=== PATIENT | male | born 1995 | race American Indian/Alaskan Native ===

== ENCOUNTER 2017-07-05 18:34 | Emergency (ER) | payer SELFPAY ==
[2017-07-05] MEDS ORDERED: ASPIRIN PO ONE (18:52)
[2017-07-05 19:20] LABS: Basophils % (Auto) 0.6 % (0.0-1.8); Eosinophils # (Auto) 0.1 K/mm3 (0.0-0.4); Hemoglobin 14.8 gm/dl (11.8-15.2); Lymphocytes # (Auto) 1.8 K/mm3 (1.2-5.4); Lymphocytes % (Auto) 30.5 % (13.4-35.0); Mean Corpuscular HGB Conc 34 % (32-34); Mean Corpuscular Volume 76 fl (84-94); Monocytes # (Auto) 0.8 K/mm3 (0.0-0.8); Monocytes % (Auto) 13.1 % (0.0-7.3); Platelet Count 203 K/mm3 (140-440); Red Blood Count 5.79 M/mm3 (3.65-5.03)
[2017-07-05 19:23] LABS: Mean Corpuscular Hemoglobin 26 pg (28-32)
[2017-07-05 20:05] LABS: BUN/Creatinine Ratio 9; Blood Urea Nitrogen 9 mg/dL (9-20); Calcium 9.1 mg/dL (8.4-10.2); Hemolysis Index 4
--- NOTE | 2017-07-05 21:05 | XRay Report ---
FINAL REPORT PROCEDURE: XR CHEST ROUTINE 2V TECHNIQUE: PA and lateral chest radiographs were obtained. CPT 37019 HISTORY: chest pain COMPARISON: No prior studies are available for comparison. FINDINGS: Heart: Normal. Mediastinum/Vessels: Normal. Lungs/Pleural space: Lungs are clear. There are no infiltrates, effusions or pneumothoraces.. Bony thorax: No acute osseous abnormality. Other: IMPRESSION: Normal examination.
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
--- NOTE | 2017-07-05 23:26 | Cat Scan Report ---
FINAL REPORT PROCEDURE: CT ANGIO CHEST TECHNIQUE: Computerized axial tomographic angiography of the chest and pulmonary arteries was performed after the IV injection of iodinated nonionic contrast. The image data was postprocessed using maximum intensity projection (MIP) and 2-dimensional multiplanar reformatted (MPR) techniques. The examination is specifically tailored to the evaluation of the pulmonary arteries per clinical request. HISTORY: Short of breath 786.09, chest pain 786.50, chest pain, pleurisy COMPARISON: No prior studies are available for comparison. FINDINGS: Heart and pericardium: Normal. Thoracic aorta: Normal. Pulmonary vasculature: Normal. No pulmonary emboli. Lymph nodes: No enlarged thoracic lymph nodes. Lungs: Normal. Pleural space: No effusion, thickening, or pneumothorax. Musculoskeletal structures: No significant abnormality. Upper abdominal structures: No significant abnormality. IMPRESSION: There is no thoracic aortic aneurysm or dissection. There is no pulmonary embolism. The lungs are clear..
[2017-07-06 00:11] VITALS: BP 131/95
== END 2017-07-05 23:45 | disposition home or self-care (01) ==
LOC: ED 18:34
DX: R07.89 Other chest pain (principal); R06.02 Shortness of breath; I10 Essential (primary) hypertension; F17.210 Nicotine dependence, cigarettes, uncomplicated; F12.10 Cannabis abuse, uncomplicated
CPT/HCPCS: 36415; 71046; 71275; 80048; 84484; 85025; 93005; 93010; 99285; Q9967

== ENCOUNTER 2017-12-05 12:32 | Emergency (ER) | payer SELFPAY ==
[2017-12-05] MEDS ORDERED: XYLOCAINE 1% MPF 5 mL INFILTRATI ONE (17:44)
[2017-12-05] MEDS ORDERED: ROCEPHIN IM ONE (17:44)
[2017-12-05] MEDS ORDERED: ZITHROMAX PO ONE (17:44)
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
[2017-12-05 18:03] VITALS: BP 128/72
== END 2017-12-05 17:59 | disposition home or self-care (01) ==
LOC: ED 12:32
DX: N34.2 Other urethritis (principal); I10 Essential (primary) hypertension; F17.200 Nicotine dependence, unspecified, uncomplicated
CPT/HCPCS: 96372; 99282; J0696